=== PATIENT | female | born 1995 | race African-American/Black ===

== ENCOUNTER 2018-09-01 17:38 | Emergency (ER) | payer OTHER ==
[2018-09-01 17:43] VITALS: BP 112/72; PULSE 73; TEMP 98.1; BMI 23.8
--- NOTE | 2018-09-01 17:57 | PDOC ---
History of Present Illness - General Chief Complaint: Pain Stated Complaint: RIGHT 3 RD FINGER PAIN AND SWELLING Time Seen by Provider: 09/01/18 17:44 - History of Present Illness Initial Comments: 23yo F with no significant PMH presenting with R. third digit pain and swelling. Patient states she has had this before. About three years ago, she sustained an infection of the same finger after she bit her cuticle. A provider prescribed her antibiotics which resolved the pain. Patient admits to biting her cuticle on that finger once again and has had pain and swelling for the last two days. The swelling was more severe yesterday: "I though my finger was going to explode." Patient has not taken anything for her pain. She endorses normal mobility and sensation in the digit. No fevers or chills. Past History - Past Medical History Allergies/Adverse Reactions: Allergies Allergy/AdvReac Type Severity Reaction Status Date / Time No Known Allergies Allergy Verified 09/01/18 17:40 Home Medications: Ambulatory Orders Amoxicillin/Potassium Clav [Augmentin 875-125 Tablet] 1 each PO BID #14 tablet 09/01/18 COPD: No Other medical history: pt denies - Suicide/Smoking/Psychosocial Hx Smoking History: Never smoked Hx Alcohol Use: No Drug/Substance Use Hx: No Review of Systems - Review of Systems Comments:: Constitutional: no fever, no chills HEENT: no throat pain, no dysphagia Cardiovascular: no chest pain, no palpitations Respiratory: no cough, no shortness of breath Gastrointestinal: no abdominal pain, no nausea Genitourinary: no dysuria, no frequency Musculoskeletal: no myalgia, no arthralgia Skin: no rash, +finger pain Neurologic: no headache, no dizziness *Physical Exam - Vital Signs Last Vital Signs Temp Pulse Resp BP Pulse Ox 98.1 F 73 18 112/72 99 09/01/18 17:39 09/01/18 17:39 09/01/18 17:39 09/01/18 17:39 09/01/18 17:39 - Physical Exam Comments: General: Awake, alert, and fully oriented, in no acute distress Head: No signs of trauma Eyes: EOMI, sclera anicteric ENT: Moist mucus membranes Neck: Normal ROM, supple Lungs: Lungs clear, Normal breath sounds Cardio: Regular rhythm, S1 and S2 present Abdomen: Soft, nontender. Extremities: Normal range of motion, Distal pulses present Distal phalange of third digit of R hand with swelling, induration, and erythema , most significant along the nailbed. No fluctuance. SKIN: Warm, Dry, normal turgor Neurologic: Cranial nerves II through XII grossly intact. Normal speech Moderate Sedation - Procedure Monitoring Vital Signs: Procedure Monitoring Vital Signs Temperature 98.1 F 09/01/18 17:39 Pulse Rate 73 09/01/18 17:39 Respiratory Rate 18 09/01/18 17:39 Blood Pressure 112/72 09/01/18 17:39 O2 Sat by Pulse Oximetry (%) 99 09/01/18 17:39 Medical Decision Making - Medical Decision Making 23yo F with no significant PMH presenting with R. third digit pain and swelling. Patient with exam consistent with paronychia Augmentin sent to pharmacy Patient discharged *DC/Admit/Observation/Transfer Diagnosis at time of Disposition: Paronychia - Discharge Dispostion Disposition: HOME Condition at time of disposition: Stable - Prescriptions Prescriptions: Amoxicillin/Potassium Clav [Augmentin 875-125 Tablet] 1 each PO BID #14 tablet - Referrals - Patient Instructions Printed Discharge Instructions: DI for Paronychia Additional Instructions: You came into the ED for finger pain. We suspect a skin/soft tissue infection called paronychia. Please review the attached handout. Antibiotics prescription sent to your pharmacy. Take as instructed. You can use [id number] tylenol or motrin for pain. Follow the instructions on the medication bottle. Seek immediate medical attention if you experience new or worsening symptoms. If you think you are having an emergency, call for emergency medical services or present to the emergency department right away. - Post Discharge Activity
--- NOTE | 2018-09-01 18:03 | PDOC ---
Attending Attestation - Resident Resident Name: Rea Joyner - ED Attending Attestation I have performed the following: I have examined & evaluated the patient, The case was reviewed & discussed with the resident, I agree w/resident's findings & plan, Exceptions are as noted - HPI HPI: 09/01/18 18:00 23 year old female with no past medical history presents with paronychia of 3rd right digit. Several days ago, Pt noticed a hanging cuticle. Started to pick at it her with her teeth. Since then, the pt started to notice and redness and pain at the base of her 3rd nail. No numbness, weakness. No fevers. Used warm soaks which helped with the pain. Pt has had this prior infection before when she bit on her fingers. - Physicial Exam PE: 09/01/18 18:02 GENERAL: Awake, alert, and fully oriented, in no acute distress HEAD: No signs of trauma EYES: EOMI, sclera anicteric, conjunctiva clear ENT: Auricles normal inspection, hearing grossly normal, nares patent NECK: Normal ROM, supple EXTREMITIES: Normal range of motion, no edema. No clubbing or cyanosis. No cords, erythema, or tenderness RUE: 3rd digit with erythema, TTP, at based of 3rd nail. No palpable fluctuance or drainage. NEUROLOGICAL: Cranial nerves II through XII grossly intact. Normal speech, normal gait SKIN: Warm, Dry, normal turgor, no rashes or lesions noted. - Medical Decision Making 09/01/18 18:02 Vital Signs Temp Pulse Resp BP Pulse Ox 98.1 F 73 18 112/72 99 09/01/18 17:39 09/01/18 17:39 09/01/18 17:39 09/01/18 17:39 09/01/18 17:39 Findings are consistent with paronychia, likely from biting from mouth. No fluctuance to drainage, so no need for I&D. Will however initiate augmentin PO x 7 days. Follow up with PMD
== END 2018-09-01 18:12 | disposition home or self-care (01) ==
LOC: FER 17:38
DX: L03.011 Cellulitis of right finger (principal)
CPT/HCPCS: 99281-25